=== PATIENT | female | born 1940 | race Caucasian/White ===

== ENCOUNTER 2018-02-18 14:33 | Inpatient (IN) | payer MEDICARE, OTHER ==
[2018-02-18] MEDS: ONDANSETRON 4 MG INJ IV (15:48)
[2018-02-18] MEDS: morphine 4 MG/ML VIAL IV (15:48)
[2018-02-18] MEDS: SOD CHLORIDE 0.9% 1,000 ML IV (15:48)
[2018-02-18 15:51] LABS: ADD MAN DIFF? NO
[2018-02-18 15:56] LABS: WHITE BLOOD COUNT 15.3 10^3/ul (4.8-10.8)
[2018-02-18 15:56] LABS: ABNORMAL IP MESSAGE 1; BASOPHIL # 0.1 10^3/ul (0.0-0.1); BASOPHILS % 0.5 % (0.0-2.0); EOSINOPHILS # 0.4 10^3/ul (0.0-0.5); EOSINOPHILS % 2.3 % (0.0-7.0); HEMATOCRIT 38.2 % (37.0-47.0); HEMOGLOBIN 11.7 g/dl (12.0-16.0); LYMPHOCYTES # 2.4 10^3/ul (0.8-2.9); LYMPHOCYTES % 15.8 % (15.0-51.0); MEAN CORPUSCULAR HEMOGLOBIN 29.5 pg (29.0-33.0); MEAN CORPUSCULAR HGB CONC 30.6 g/dl (32.0-37.0); MEAN CORPUSCULAR VOLUME 96.5 fl (82.0-101.0); MONOCYTE # 1.5 10^3/ul (0.3-0.9); MONOCYTES % 9.6 % (0.0-11.0); NEUTROPHIL # 10.9 10^3/ul (1.6-7.5); NEUTROPHILS % 71.4 % (39.0-77.0); PLATELET COUNT 148 10^3/UL (140-415); RED BLOOD COUNT 3.96 10^6/ul (4.20-5.40)
[2018-02-18 16:15] LABS: INR 1.03; PROTIME 13.6 Sec (11.9-14.9); PT RATIO 1.1
[2018-02-18 16:16] LABS: PARTIAL THROMBOPLASTIN TIME 30.4 Sec (23.0-35.0)
[2018-02-18 16:17] LABS: ADD UMIC YES; UR ASCORBIC ACID NEGATIVE (NEGATIVE); UR BILIRUBIN (Dip) NEGATIVE (NEGATIVE); UR BLOOD (Dip) NEGATIVE (NEGATIVE); UR CLARITY CLEAR (CLEAR); UR COLOR YELLOW (YELLOW); UR GLUCOSE (Dip) NEGATIVE (NEGATIVE); UR KETONES (Dip) NEGATIVE (NEGATIVE); UR LEUKOCYTE ESTERASE (Dip) TRACE Leu/ul (NEGATIVE); UR NITRITE (Dip) NEGATIVE (NEGATIVE); UR RBC 1 /HPF (0-5); UR SQUAMOUS EPITHELIAL CELL FEW /HPF (FEW); UR TOTAL PROTEIN (Dip) 1+ mg/dl (NEGATIVE); UR UROBILINOGEN (Dip) NEGATIVE (NEGATIVE); UR WBC 5 /HPF (0-5)
[2018-02-18 16:20] LABS: ALANINE AMINOTRANSFERASE 19 IU/L (13-69); ALBUMIN 3.2 g/dl (3.3-4.9); ALBUMIN/GLOBULIN RATIO 0.88; ALKALINE PHOSPHATASE 73 IU/L (42-121); ANION GAP 13 (8-16); ASPARTATE AMINO TRANSFERASE 18 IU/L (15-46); BILIRUBIN,INDIRECT 0.2 mg/dl (0-1.1); BILIRUBIN,TOTAL 0.2 mg/dl (0.2-1.3); BLOOD UREA NITROGEN 29 mg/dl (7-20); CALCIUM 9.8 mg/dl (8.4-10.2); CARBON DIOXIDE 28 mmol/L (21-31); CHLORIDE 102 mmol/L (97-110); CREATININE 1.06 mg/dl (0.44-1.00); GLUCOSE 108 mg/dl (70-220); LIPASE 64 U/L (23-300); POTASSIUM 4.5 mmol/L (3.5-5.1); SODIUM 138 mmol/L (135-144); TOTAL PROTEIN 6.8 g/dl (6.1-8.1)
[2018-02-18] MEDS: CEFTRIAXONE 1 GM/50 ML (PMX) 50 ML IVPB (17:08)
[2018-02-18] MEDS ORDERED: metroNIDAZOLE 500 MG/NS (PMX) 100 ML IVPB (18:00)
[2018-02-18] MEDS ORDERED: GLUCAGON 1 MG INJ IM (18:30)
[2018-02-18] MEDS ORDERED: HYDROCODONE/APAP (5/325) TAB PO (18:30)
[2018-02-18] MEDS ORDERED: DEXTROSE 50% 50 ML SYRINGE IV ×2 (18:30)
[2018-02-18] MEDS ORDERED: GLUCOSE GEL 15 GRAM TUBE PO ×2 (18:30)
[2018-02-18] MEDS ORDERED: GLUCOSE GEL 15 GRAM TUBE BUCCAL (18:30)
[2018-02-18] MEDS: INSULIN ASPART [NOVOLOG] 3 ML PEN SC (18:30)
[2018-02-18] MEDS ORDERED: NACL 0.9% 3 ML SYG IV (18:30)
[2018-02-18] MEDS ORDERED: LORAZEPAM 2 MG INJ IV (18:30)
[2018-02-18] MEDS ORDERED: hydrALAzine 20 MG INJ IV (19:00)
[2018-02-18] MEDS: DEXTROSE 5%-0.45% NACL 1,000 ML IV (20:03)
[2018-02-18] MEDS: PANTOPRAZOLE 40 MG INJ IV (20:04)
[2018-02-18] MEDS: metroNIDAZOLE 500 MG/NS (PMX) 100 ML IVPB ×2 (20:04→22:00)
[2018-02-18] MEDS: CIPROFLOXACIN 400MG/D5W 200 ML IVPB ×2 (20:04→21:00)
[2018-02-18] MEDS: morphine 2 MG INJ IV (20:14)
[2018-02-18] MEDS ORDERED: FAMOTIDINE 20 MG INJ IV (21:00)
[2018-02-19] MEDS: ACCU-CHEK XX (02:00)
[2018-02-19] MEDS: DEXTROSE 5%-0.45% NACL 1,000 ML IV ×4 (04:15→23:12)
[2018-02-19] MEDS: LEVOTHYROXINE 100 MCG VIAL IV (05:25)
[2018-02-19] MEDS: metroNIDAZOLE 500 MG/NS (PMX) 100 ML IVPB ×3 (05:25→22:17)
[2018-02-19] MEDS: PANTOPRAZOLE 40 MG INJ IV (05:25)
[2018-02-19] MEDS: ONDANSETRON 4 MG INJ IV ×2 (05:25→19:37)
[2018-02-19] MEDS: ACETAMINOPHEN 325 MG TAB PO (05:35)
[2018-02-19] MEDS: INSULIN ASPART [NOVOLOG] 3 ML PEN SC ×5 (05:38→20:38)
[2018-02-19 07:14] LABS: ADD MAN DIFF? NO
[2018-02-19 07:17] LABS: ABNORMAL IP MESSAGE 1; BASOPHIL # 0.1 10^3/ul (0.0-0.1); BASOPHILS % 0.4 % (0.0-2.0); EOSINOPHILS # 0.3 10^3/ul (0.0-0.5); EOSINOPHILS % 2.7 % (0.0-7.0); HEMATOCRIT 32.7 % (37.0-47.0); HEMOGLOBIN 10.2 g/dl (12.0-16.0); LYMPHOCYTES # 2.7 10^3/ul (0.8-2.9); LYMPHOCYTES % 21.2 % (15.0-51.0); MEAN CORPUSCULAR HEMOGLOBIN 30.1 pg (29.0-33.0); MEAN CORPUSCULAR HGB CONC 31.2 g/dl (32.0-37.0); MEAN CORPUSCULAR VOLUME 96.5 fl (82.0-101.0); MEAN PLATELET VOLUME 13.5 fl (7.4-10.4); MONOCYTES % 7.7 % (0.0-11.0); NEUTROPHIL # 8.5 10^3/ul (1.6-7.5); NEUTROPHILS % 67.4 % (39.0-77.0); PLATELET COUNT 139 10^3/UL (140-415); RED BLOOD COUNT 3.39 10^6/ul (4.20-5.40); RED CELL DISTRIBUTION WIDTH 12.8 % (11.5-14.5)
[2018-02-19 07:17] LABS: WHITE BLOOD COUNT 12.7 10^3/ul (4.8-10.8)
[2018-02-19 07:21] LABS: POSITIVE DIFF @See below
[2018-02-19 07:42] LABS: ALANINE AMINOTRANSFERASE 18 IU/L (13-69); ALBUMIN 3.1 g/dl (3.3-4.9); ALBUMIN/GLOBULIN RATIO 1.06; ALKALINE PHOSPHATASE 59 IU/L (42-121); ANION GAP 12 (8-16); ASPARTATE AMINO TRANSFERASE 16 IU/L (15-46); BILIRUBIN,INDIRECT 0.2 mg/dl (0-1.1); BILIRUBIN,TOTAL 0.2 mg/dl (0.2-1.3); BLOOD UREA NITROGEN 21 mg/dl (7-20); CALCIUM 8.4 mg/dl (8.4-10.2); CARBON DIOXIDE 26 mmol/L (21-31); CHLORIDE 104 mmol/L (97-110); CREATININE 0.92 mg/dl (0.44-1.00); GLUCOSE 123 mg/dl (70-220); MAGNESIUM 1.4 mg/dl (1.7-2.5); POTASSIUM 4.6 mmol/L (3.5-5.1); SODIUM 137 mmol/L (135-144)
[2018-02-19 07:58] LABS: FREE T4 (FREE THYROXINE) 0.97 ng/dl (0.85-1.93)
[2018-02-19] MEDS: CIPROFLOXACIN 400MG/D5W 200 ML IVPB ×2 (08:12→20:37)
[2018-02-19] MEDS: ASPIRIN 81 MG TAB PO (08:14)
[2018-02-19] MEDS: DONEPEZIL 10 MG TAB PO (08:15)
[2018-02-19] MEDS: LOSARTAN 50 MG TAB PO (08:15)
[2018-02-19] MEDS: QUETIAPINE 25 MG TAB PO (08:15)
[2018-02-19] MEDS: MEMANTINE 10 MG TAB PO (08:15)
[2018-02-19] MEDS: MAGNESIUM SULFATE 2 GM/50 ML 50 ML IVPB (11:06)
[2018-02-19] MEDS ORDERED: LORAZEPAM 1 MG TAB PO (15:00)
[2018-02-19] MEDS: morphine 2 MG INJ IV (19:22)
[2018-02-20] MEDS: morphine 2 MG INJ IV (00:56)
[2018-02-20] MEDS: DEXTROSE 5%-0.45% NACL 1,000 ML IV ×2 (02:00→10:15)
[2018-02-20] MEDS: ACCU-CHEK XX (02:00)
[2018-02-20] MEDS: LEVOTHYROXINE 50 MCG TAB PO (05:58)
[2018-02-20] MEDS: metroNIDAZOLE 500 MG/NS (PMX) 100 ML IVPB (05:58)
[2018-02-20] MEDS: PANTOPRAZOLE 40 MG INJ IV (05:58)
[2018-02-20 07:44] LABS: ADD MAN DIFF? NO
[2018-02-20 07:52] LABS: WHITE BLOOD COUNT 9.6 10^3/ul (4.8-10.8)
[2018-02-20 07:52] LABS: ABNORMAL IP MESSAGE 1; BASOPHIL # 0.1 10^3/ul (0.0-0.1); BASOPHILS % 0.5 % (0.0-2.0); EOSINOPHILS # 0.4 10^3/ul (0.0-0.5); EOSINOPHILS % 4.5 % (0.0-7.0); HEMATOCRIT 35.5 % (37.0-47.0); HEMOGLOBIN 10.9 g/dl (12.0-16.0); LYMPHOCYTES # 2.3 10^3/ul (0.8-2.9); LYMPHOCYTES % 23.5 % (15.0-51.0); MEAN CORPUSCULAR HEMOGLOBIN 29.8 pg (29.0-33.0); MEAN CORPUSCULAR HGB CONC 30.7 g/dl (32.0-37.0); MEAN PLATELET VOLUME 13.9 fl (7.4-10.4); MONOCYTE # 1.1 10^3/ul (0.3-0.9); MONOCYTES % 10.9 % (0.0-11.0); NEUTROPHIL # 5.8 10^3/ul (1.6-7.5); NEUTROPHILS % 60.2 % (39.0-77.0); PLATELET COUNT 168 10^3/UL (140-415); RED BLOOD COUNT 3.66 10^6/ul (4.20-5.40); RED CELL DISTRIBUTION WIDTH 12.9 % (11.5-14.5)
[2018-02-20 07:53] LABS: POSITIVE DIFF @See below
[2018-02-20 08:14] LABS: ANION GAP 9 (8-16); BLOOD UREA NITROGEN 14 mg/dl (7-20); CALCIUM 8.7 mg/dl (8.4-10.2); CARBON DIOXIDE 31 mmol/L (21-31); CHLORIDE 105 mmol/L (97-110); CREATININE 0.91 mg/dl (0.44-1.00); GLUCOSE 116 mg/dl (70-220); MAGNESIUM 1.8 mg/dl (1.7-2.5); PHOSPHORUS 3.7 mg/dl (2.5-4.9); POTASSIUM 4.8 mmol/L (3.5-5.1); SODIUM 140 mmol/L (135-144)
[2018-02-20] MEDS: MEMANTINE 10 MG TAB PO (08:42)
[2018-02-20] MEDS: QUETIAPINE 25 MG TAB PO (08:42)
[2018-02-20] MEDS: ASPIRIN 81 MG TAB PO (08:42)
[2018-02-20] MEDS: DONEPEZIL 10 MG TAB PO (08:42)
[2018-02-20] MEDS: CIPROFLOXACIN 400MG/D5W 200 ML IVPB (08:42)
[2018-02-20] MEDS: LOSARTAN 50 MG TAB PO (08:42)
[2018-02-20] MEDS: INSULIN ASPART [NOVOLOG] 3 ML PEN SC ×2 (08:53→11:30)
[2018-02-20] MEDS: metroNIDAZOLE 500 MG TAB PO (13:54)
[2018-02-20] MEDS ORDERED: CIPROFLOXACIN 500 MG TAB PO (18:00)
== END 2018-02-20 14:25 | disposition home or self-care (01) | DRG 392 ==
LOC: E/R 14:33 → 2NE 18:12
DX: K57.92 Diverticulitis of intestine, part unspecified, without perforation or abscess without bleeding (principal); E11.8 Type 2 diabetes mellitus with unspecified complications; R42 Dizziness and giddiness; E03.9 Hypothyroidism, unspecified; I10 Essential (primary) hypertension; G30.9 Alzheimer's disease, unspecified; F02.80 Dementia in other diseases classified elsewhere, unspecified severity, without behavioral disturbance, psychotic disturbance, mood disturbance, and anxiety; R11.2 Nausea with vomiting, unspecified; E11.9 Type 2 diabetes mellitus without complications; F39 Unspecified mood [affective] disorder
CPT/HCPCS: 36415; 74176; 80048; 80053; 81001; 82962; 83036; 83690; 83735; 84100; 84439; 84443; 85025; 85610; 85730; 87086; 96374; 96375; 99285-25

== ENCOUNTER 2018-02-25 15:02 | Emergency (ER) | payer MEDICARE, OTHER ==
[2018-02-25 15:35] LABS: ADD MAN DIFF? NO
[2018-02-25 15:37] LABS: BASOPHIL # 0.1 10^3/ul (0.0-0.1); BASOPHILS % 0.7 % (0.0-2.0); EOSINOPHILS # 0.4 10^3/ul (0.0-0.5); EOSINOPHILS % 3.3 % (0.0-7.0); HEMATOCRIT 36.1 % (37.0-47.0); HEMOGLOBIN 11.4 g/dl (12.0-16.0); LYMPHOCYTES # 2.9 10^3/ul (0.8-2.9); LYMPHOCYTES % 22.8 % (15.0-51.0); MEAN CORPUSCULAR HEMOGLOBIN 29.4 pg (29.0-33.0); MEAN CORPUSCULAR HGB CONC 31.6 g/dl (32.0-37.0); MEAN PLATELET VOLUME 12.2 fl (7.4-10.4); MONOCYTE # 1.3 10^3/ul (0.3-0.9); MONOCYTES % 10.4 % (0.0-11.0); NEUTROPHILS % 62.3 % (39.0-77.0); PLATELET COUNT 261 10^3/UL (140-415); RED BLOOD COUNT 3.88 10^6/ul (4.20-5.40)
[2018-02-25 15:37] LABS: WHITE BLOOD COUNT 12.8 10^3/ul (4.8-10.8)
[2018-02-25] MEDS: ONDANSETRON 4 MG INJ IV (15:43)
[2018-02-25] MEDS: SOD CHLORIDE 0.9% 1,000 ML IV (15:44)
[2018-02-25] MEDS: morphine 4 MG/ML VIAL IV (15:44)
[2018-02-25 15:57] LABS: ALANINE AMINOTRANSFERASE 25 IU/L (13-69); ALBUMIN 3.2 g/dl (3.3-4.9); ALBUMIN/GLOBULIN RATIO 0.94; ALKALINE PHOSPHATASE 61 IU/L (42-121); ANION GAP 15 (8-16); ASPARTATE AMINO TRANSFERASE 22 IU/L (15-46); BILIRUBIN,INDIRECT 0.1 mg/dl (0-1.1); BILIRUBIN,TOTAL 0.1 mg/dl (0.2-1.3); BLOOD UREA NITROGEN 14 mg/dl (7-20); CALCIUM 9.8 mg/dl (8.4-10.2); CARBON DIOXIDE 24 mmol/L (21-31); CHLORIDE 104 mmol/L (97-110); CREATININE 0.85 mg/dl (0.44-1.00); GLUCOSE 106 mg/dl (70-220); LIPASE 59 U/L (23-300); POTASSIUM 4.2 mmol/L (3.5-5.1); SODIUM 139 mmol/L (135-144); TOTAL PROTEIN 6.6 g/dl (6.1-8.1)
[2018-02-25] MEDS: SOD CHLORIDE 0.9% 100 ML (17:16)
[2018-02-25] MEDS: IOHEXOL 300MG/ML 150 ML BTL (17:16)
== END 2018-02-25 19:08 | disposition home or self-care (01) ==
LOC: E/R 15:02
DX: K57.32 Diverticulitis of large intestine without perforation or abscess without bleeding (principal); G30.9 Alzheimer's disease, unspecified; Z79.82 Long term (current) use of aspirin
CPT/HCPCS: 36415; 74177; 80053; 83690; 85025; 93005; 96374; 96375; 99285-25

== ENCOUNTER 2018-06-14 12:56 | Inpatient (IN) | payer MEDICARE, OTHER ==
[2018-06-14 13:14] LABS: ADD MAN DIFF? NO
[2018-06-14 13:18] LABS: WHITE BLOOD COUNT 8.3 10^3/ul (4.8-10.8)
[2018-06-14 13:18] LABS: ABNORMAL IP MESSAGE 1; BASOPHIL # 0.1 10^3/ul (0.0-0.1); BASOPHILS % 0.8 % (0.0-2.0); EOSINOPHILS # 0.3 10^3/ul (0.0-0.5); EOSINOPHILS % 3.6 % (0.0-7.0); HEMATOCRIT 39.3 % (37.0-47.0); HEMOGLOBIN 12.3 g/dl (12.0-16.0); LYMPHOCYTES # 2.8 10^3/ul (0.8-2.9); LYMPHOCYTES % 34.1 % (15.0-51.0); MEAN CORPUSCULAR HGB CONC 31.3 g/dl (32.0-37.0); MEAN CORPUSCULAR VOLUME 95.9 fl (82.0-101.0); MEAN PLATELET VOLUME 13.2 fl (7.4-10.4); MONOCYTE # 0.8 10^3/ul (0.3-0.9); MONOCYTES % 10.2 % (0.0-11.0); NEUTROPHIL # 4.2 10^3/ul (1.6-7.5); NEUTROPHILS % 50.9 % (39.0-77.0); PLATELET COUNT 154 10^3/UL (140-415); RED CELL DISTRIBUTION WIDTH 13.6 % (11.5-14.5)
[2018-06-14 13:20] LABS: POSITIVE DIFF @See below
[2018-06-14 13:38] LABS: INR 0.93; PROTIME 12.6 Sec (11.9-14.9)
[2018-06-14 13:39] LABS: ALANINE AMINOTRANSFERASE 15 IU/L (13-69); ALBUMIN 4.1 g/dl (3.3-4.9); ALBUMIN/GLOBULIN RATIO 1.28; ALKALINE PHOSPHATASE 70 IU/L (42-121); ANION GAP 10 (5-13); ASPARTATE AMINO TRANSFERASE 27 IU/L (15-46); BILIRUBIN,INDIRECT 0.1 mg/dl (0-1.1); BILIRUBIN,TOTAL 0.1 mg/dl (0.2-1.3); BLOOD UREA NITROGEN 19 mg/dl (7-20); CALCIUM 9.5 mg/dl (8.4-10.2); CARBON DIOXIDE 24 mmol/L (21-31); CHLORIDE 104 mmol/L (97-110); CREATININE 0.93 mg/dl (0.44-1.00); GLUCOSE 97 mg/dl (70-220); PARTIAL THROMBOPLASTIN TIME 30.4 Sec (23.0-35.0); POTASSIUM 4.5 mmol/L (3.5-5.1); SODIUM 138 mmol/L (135-144); TOTAL PROTEIN 7.3 g/dl (6.1-8.1)
[2018-06-14 13:45] LABS: ACETAMINOPHEN < 10.0 ug/ml (10.0-30.0); ETHANOL < 10.0 mg/dl (0-0); SALICYLATE < 1.0 mg/dl (5.0-30.0)
[2018-06-14 13:50] LABS: TROPONIN-I < 0.012 ng/ml (0.000-0.120)
[2018-06-14 13:54] LABS: AMPHETAMINE/METHAMPHETAMINE Negative (NEGATIVE); BARBITURATES Negative (NEGATIVE); BENZODIAZEPINES Negative (NEGATIVE); CANNABINOIDS Negative (NEGATIVE); COCAINE Negative (NEGATIVE); OPIATES Negative (NEGATIVE)
[2018-06-14] MEDS: THIAMINE 100 MG TAB PO (13:54)
[2018-06-14 13:57] LABS: UR BACTERIA FEW /HPF (NONE SEEN); UR RBC 0 /HPF (0-5); UR WBC 2 /HPF (0-5)
[2018-06-14 14:03] LABS: ADD UMIC NO; UR ASCORBIC ACID NEGATIVE (NEGATIVE); UR BILIRUBIN (Dip) NEGATIVE (NEGATIVE); UR BLOOD (Dip) NEGATIVE (NEGATIVE); UR CLARITY SLIGHTLY CLOUDY (CLEAR); UR COLOR YELLOW (YELLOW); UR GLUCOSE (Dip) NEGATIVE (NEGATIVE); UR KETONES (Dip) NEGATIVE (NEGATIVE); UR LEUKOCYTE ESTERASE (Dip) NEGATIVE Leu/ul (NEGATIVE); UR NITRITE (Dip) NEGATIVE (NEGATIVE); UR SPECIFIC GRAVITY (Dip) 1.017 (1.003-1.030); UR TOTAL PROTEIN (Dip) NEGATIVE (NEGATIVE); UR UROBILINOGEN (Dip) NEGATIVE (NEGATIVE)
[2018-06-14] MEDS: THIAMINE 100 MG in SOD CHLORIDE 0.9% 100 ML IVPB (14:17)
[2018-06-14] MEDS: SOD CHLORIDE 0.9% 500 ML IV (14:32)
[2018-06-14] MEDS: ASPIRIN 325 MG TAB PO (14:32)
[2018-06-14] MEDS ORDERED: ACETAMINOPHEN 325 MG TAB PO ×3 (15:30→20:00)
[2018-06-14] MEDS ORDERED: ONDANSETRON 4 MG INJ IV ×3 (15:30→20:00)
[2018-06-14 18:07] LABS: LACTIC ACID 2.8 mmol/L (0.5-2.0)
[2018-06-14] MEDS ORDERED: SOD CHLORIDE 0.9% 1,000 ML IV (19:42)
[2018-06-14] MEDS ORDERED: DOCUSATE SODIUM 100 MG CAP PO ×2 (20:00)
[2018-06-14] MEDS ORDERED: GLUCOSE GEL 15 GRAM TUBE PO ×2 (20:00)
[2018-06-14] MEDS ORDERED: GLUCOSE GEL 15 GRAM TUBE BUCCAL (20:00)
[2018-06-14] MEDS ORDERED: CYANOCOBALAMIN 500 MCG TAB PO (20:00)
[2018-06-14] MEDS ORDERED: NACL 0.9% 3 ML SYG IV ×2 (20:00)
[2018-06-14] MEDS ORDERED: ACETAMINOPHEN 650 MG SUPP PR (20:00)
[2018-06-14] MEDS ORDERED: clonAZEPAM 0.5 MG TAB PO (20:00)
[2018-06-14] MEDS ORDERED: morphine 2 MG INJ IV (20:00)
[2018-06-14] MEDS ORDERED: HYDROCODONE/APAP (5/325) TAB PO ×2 (20:00)
[2018-06-14] MEDS ORDERED: BISACODYL (EC) 5 MG TAB PO (20:00)
[2018-06-14] MEDS ORDERED: GLUCAGON 1 MG INJ IM (20:00)
[2018-06-14] MEDS ORDERED: DEXTROSE 50% 50 ML SYRINGE IV ×2 (20:00)
[2018-06-14] MEDS ORDERED: MAGNESIUM HYDROXIDE 30ML CUP PO (20:00)
[2018-06-14] MEDS ORDERED: morphine 4 MG/ML VIAL IV (20:13)
[2018-06-14] MEDS: INSULIN ASPART [NOVOLOG] 3 ML PEN SC (20:25)
[2018-06-14] MEDS: SOD CHLORIDE 0.45% 1,000 ML IV (20:54)
[2018-06-14] MEDS: CEFTRIAXONE 1 GM/50 ML (PMX) 50 ML IVPB (20:54)
[2018-06-14] MEDS: MEMANTINE 10 MG TAB PO (20:55)
[2018-06-14] MEDS: DULOXETINE 30 MG CAP DR PO (20:55)
[2018-06-14] MEDS: QUETIAPINE 25 MG TAB PO (20:55)
[2018-06-15] MEDS: ACCU-CHEK XX (01:12)
[2018-06-15] MEDS: SOD CHLORIDE 0.45% 1,000 ML IV (05:41)
[2018-06-15 05:46] LABS: ADD MAN DIFF? NO
[2018-06-15 05:48] LABS: WHITE BLOOD COUNT 9.5 10^3/ul (4.8-10.8)
[2018-06-15 05:48] LABS: ABNORMAL IP MESSAGE 1; BASOPHIL # 0.1 10^3/ul (0.0-0.1); BASOPHILS % 0.7 % (0.0-2.0); EOSINOPHILS # 0.3 10^3/ul (0.0-0.5); EOSINOPHILS % 3.3 % (0.0-7.0); HEMATOCRIT 35.4 % (37.0-47.0); HEMOGLOBIN 11.2 g/dl (12.0-16.0); LYMPHOCYTES # 2.4 10^3/ul (0.8-2.9); LYMPHOCYTES % 25.3 % (15.0-51.0); MEAN CORPUSCULAR HEMOGLOBIN 29.9 pg (29.0-33.0); MEAN CORPUSCULAR HGB CONC 31.6 g/dl (32.0-37.0); MEAN CORPUSCULAR VOLUME 94.7 fl (82.0-101.0); MONOCYTE # 0.9 10^3/ul (0.3-0.9); MONOCYTES % 9.2 % (0.0-11.0); NEUTROPHIL # 5.8 10^3/ul (1.6-7.5); NEUTROPHILS % 61.2 % (39.0-77.0); PLATELET COUNT 155 10^3/UL (140-415); RED BLOOD COUNT 3.74 10^6/ul (4.20-5.40); RED CELL DISTRIBUTION WIDTH 13.5 % (11.5-14.5)
[2018-06-15 06:02] LABS: POSITIVE DIFF @See below
[2018-06-15 06:15] LABS: INR 1.01; PROTIME 13.4 Sec (11.9-14.9)
[2018-06-15 06:17] LABS: CHOL/HDL RATIO 3.4 RATIO; HDL CHOLESTEROL 53 mg/dl (33-92); LDL CHOLESTEROL,CALCULATED 74 mg/dl; TRIGLYCERIDES 287 mg/dl (0-149)
[2018-06-15 06:17] LABS: CHOLESTEROL 184 mg/dl (100-200)
[2018-06-15 06:27] LABS: ANION GAP 7 (5-13); BLOOD UREA NITROGEN 17 mg/dl (7-20); CALCIUM 9.2 mg/dl (8.4-10.2); CARBON DIOXIDE 26 mmol/L (21-31); CHLORIDE 102 mmol/L (97-110); CREATININE 0.87 mg/dl (0.44-1.00); GLUCOSE 87 mg/dl (70-220); MAGNESIUM 1.3 mg/dl (1.7-2.5); PHOSPHORUS 4.1 mg/dl (2.5-4.9); POTASSIUM 4.6 mmol/L (3.5-5.1); SODIUM 135 mmol/L (135-144)
[2018-06-15 07:08] LABS: HEMOGLOBIN A1C 5.7 % (0-5.9)
[2018-06-15] MEDS: INSULIN ASPART [NOVOLOG] 3 ML PEN SC ×2 (08:00→12:00)
[2018-06-15] MEDS ORDERED: NON-FORMULARY/PATIENT OWN MED (Donepezil* 23 MG) PO (09:00)
[2018-06-15] MEDS ORDERED: MAGNESIUM SULFATE 4 GM/100 ML 100 ML IVPB (09:00)
[2018-06-15] MEDS: HYDROCHLOROTHIAZIDE 12.5 MG CAP PO (09:04)
[2018-06-15] MEDS: metFORMIN 500 MG TAB PO (09:04)
[2018-06-15] MEDS: ASPIRIN (EC) 81 MG TAB PO (09:05)
[2018-06-15] MEDS: MEMANTINE 10 MG TAB PO (09:05)
[2018-06-15] MEDS: AMLODIPINE 5 MG TAB PO (09:05)
[2018-06-15] MEDS: LOSARTAN 50 MG TAB PO (09:05)
[2018-06-15] MEDS: CHOLECALCIFEROL 1,000 UNIT TAB PO (09:05)
[2018-06-15] MEDS: LEVOTHYROXINE 50 MCG TAB PO (09:05)
[2018-06-15] MEDS: ENOXAPARIN 40 MG/0.4 ML SYG SC (09:30)
[2018-06-15] MEDS: MAGNESIUM OXIDE 400 MG TAB PO (11:00)
== END 2018-06-15 12:38 | disposition home or self-care (01) | DRG 72 ==
LOC: E/R 12:56 → 6WM 15:23
DX: G93.40 Encephalopathy, unspecified (principal); G30.9 Alzheimer's disease, unspecified; F02.80 Dementia in other diseases classified elsewhere, unspecified severity, without behavioral disturbance, psychotic disturbance, mood disturbance, and anxiety; I10 Essential (primary) hypertension; E03.9 Hypothyroidism, unspecified; E11.9 Type 2 diabetes mellitus without complications; Z86.73 Personal history of transient ischemic attack (TIA), and cerebral infarction without residual deficits; Z79.82 Long term (current) use of aspirin; Z79.84 Long term (current) use of oral hypoglycemic drugs
CPT/HCPCS: 36415; 70450; 71045; 80048; 80053; 80061; 80307; 81001; 81003; 82607; 82962; 83036; 83605; 83735; 84100; 84484; 85025; 85610; 85730; 87040; 87086; 87400; 93005; 97161; 99285-25; G0378

== ENCOUNTER 2018-11-03 16:09 | Emergency (ER) | payer MEDICARE, OTHER ==
[2018-11-03] MEDS: ONDANSETRON 4 MG INJ IV (19:38)
[2018-11-03] MEDS: SOD CHLORIDE 0.9% 500 ML IV (19:38)
[2018-11-03 19:47] LABS: URINE PH (Dip) POC 5.5 (5.0-8.5)
[2018-11-03 19:47] LABS: URINE BLOOD (Dip) POC Negative (NEGATIVE); URINE GLUCOSE (Dip) POC Negative (NEGATIVE); URINE KETONES (Dip) POC Trace (NEGATIVE); URINE LEUKOCYTE EST (Dip) POC 1+ (NEGATIVE); URINE NITRITE (Dip) POC Negative (NEGATIVE); URINE TOTAL PROTEIN POC 3+ (NEGATIVE)
[2018-11-03 19:48] LABS: ADD MAN DIFF? NO
[2018-11-03 19:54] LABS: WHITE BLOOD COUNT 8.5 10^3/ul (4.8-10.8)
[2018-11-03 19:54] LABS: ABNORMAL IP MESSAGE 1; BASOPHIL # 0.1 10^3/ul (0.0-0.1); BASOPHILS % 0.7 % (0.0-2.0); EOSINOPHILS # 0.2 10^3/ul (0.0-0.5); EOSINOPHILS % 2.1 % (0.0-7.0); HEMATOCRIT 39.5 % (37.0-47.0); HEMOGLOBIN 12.4 g/dl (12.0-16.0); LYMPHOCYTES # 2.9 10^3/ul (0.8-2.9); LYMPHOCYTES % 34.1 % (15.0-51.0); MEAN CORPUSCULAR HEMOGLOBIN 29.5 pg (29.0-33.0); MEAN CORPUSCULAR HGB CONC 31.4 g/dl (32.0-37.0); MEAN CORPUSCULAR VOLUME 93.8 fl (82.0-101.0); MEAN PLATELET VOLUME 13.5 fl (7.4-10.4); MONOCYTE # 0.8 10^3/ul (0.3-0.9); MONOCYTES % 9.2 % (0.0-11.0); NEUTROPHIL # 4.5 10^3/ul (1.6-7.5); NEUTROPHILS % 53.7 % (39.0-77.0); PLATELET COUNT 201 10^3/UL (140-415); RED BLOOD COUNT 4.21 10^6/ul (4.20-5.40); RED CELL DISTRIBUTION WIDTH 12.8 % (11.5-14.5)
[2018-11-03 19:56] LABS: POSITIVE DIFF @See below
[2018-11-03 20:17] LABS: ALANINE AMINOTRANSFERASE 13 IU/L (13-69); ALBUMIN 4.6 g/dl (3.3-4.9); ALBUMIN/GLOBULIN RATIO 1.31; ALKALINE PHOSPHATASE 69 IU/L (42-121); ANION GAP 14 (5-13); ASPARTATE AMINO TRANSFERASE 20 IU/L (15-46); BILIRUBIN,INDIRECT 0.5 mg/dl (0-1.1); BILIRUBIN,TOTAL 0.5 mg/dl (0.2-1.3); BLOOD UREA NITROGEN 20 mg/dl (7-20); CARBON DIOXIDE 26 mmol/L (21-31); CHLORIDE 100 mmol/L (97-110); CREATININE 1.54 mg/dl (0.44-1.00); GLUCOSE 106 mg/dl (70-220); LIPASE 46 U/L (23-300); POTASSIUM 4.2 mmol/L (3.5-5.1); SODIUM 140 mmol/L (135-144); TOTAL PROTEIN 8.1 g/dl (6.1-8.1)
[2018-11-03] MEDS: CEFTRIAXONE 1 GM/50 ML (PMX) 50 ML IVPB (21:49)
== END 2018-11-03 22:41 | disposition home or self-care (01) ==
LOC: E/R 16:09
DX: N39.0 Urinary tract infection, site not specified (principal); K52.9 Noninfective gastroenteritis and colitis, unspecified; L30.9 Dermatitis, unspecified
CPT/HCPCS: 36415; 74176; 76705; 80053; 81003; 83690; 85025; 96374; 96375; 99285-25

== ENCOUNTER 2018-11-06 12:22 | Observation (INO) | payer MEDICARE, OTHER ==
[2018-11-06] MEDS: morphine 4 MG/ML VIAL IV (13:17)
[2018-11-06] MEDS: ONDANSETRON 4 MG INJ IV (13:17)
[2018-11-06 13:18] LABS: ADD MAN DIFF? NO
[2018-11-06] MEDS: SOD CHLORIDE 0.9% 1,000 ML IV ×2 (13:20→21:42)
[2018-11-06 13:28] LABS: ABNORMAL IP MESSAGE 1; BASOPHIL # 0.1 10^3/ul (0.0-0.1); BASOPHILS % 0.6 % (0.0-2.0); EOSINOPHILS # 0.1 10^3/ul (0.0-0.5); EOSINOPHILS % 0.6 % (0.0-7.0); HEMATOCRIT 36.6 % (37.0-47.0); HEMOGLOBIN 11.6 g/dl (12.0-16.0); LYMPHOCYTES # 1.5 10^3/ul (0.8-2.9); LYMPHOCYTES % 18.5 % (15.0-51.0); MEAN CORPUSCULAR HEMOGLOBIN 29.4 pg (29.0-33.0); MEAN CORPUSCULAR HGB CONC 31.7 g/dl (32.0-37.0); MEAN CORPUSCULAR VOLUME 92.9 fl (82.0-101.0); MEAN PLATELET VOLUME 13.7 fl (7.4-10.4); MONOCYTE # 0.5 10^3/ul (0.3-0.9); MONOCYTES % 5.9 % (0.0-11.0); NEUTROPHIL # 6.1 10^3/ul (1.6-7.5); NEUTROPHILS % 74.2 % (39.0-77.0); PLATELET COUNT 195 10^3/UL (140-415); RED BLOOD COUNT 3.94 10^6/ul (4.20-5.40); RED CELL DISTRIBUTION WIDTH 12.7 % (11.5-14.5)
[2018-11-06 13:28] LABS: WHITE BLOOD COUNT 8.2 10^3/ul (4.8-10.8)
[2018-11-06 13:32] LABS: POSITIVE DIFF @See below
[2018-11-06 13:48] LABS: ALANINE AMINOTRANSFERASE 16 IU/L (13-69); ALBUMIN 4.1 g/dl (3.3-4.9); ALBUMIN/GLOBULIN RATIO 1.24; ALKALINE PHOSPHATASE 60 IU/L (42-121); ANION GAP 13 (5-13); ASPARTATE AMINO TRANSFERASE 17 IU/L (15-46); BILIRUBIN,INDIRECT 0.3 mg/dl (0-1.1); BILIRUBIN,TOTAL 0.3 mg/dl (0.2-1.3); BLOOD UREA NITROGEN 25 mg/dl (7-20); CALCIUM 9.4 mg/dl (8.4-10.2); CARBON DIOXIDE 23 mmol/L (21-31); CHLORIDE 102 mmol/L (97-110); CREATININE 1.41 mg/dl (0.44-1.00); GLUCOSE 104 mg/dl (70-220); LIPASE 46 U/L (23-300); POTASSIUM 4.1 mmol/L (3.5-5.1); SODIUM 138 mmol/L (135-144); TOTAL PROTEIN 7.4 g/dl (6.1-8.1)
[2018-11-06] MEDS ORDERED: ONDANSETRON 4 MG INJ IV (17:30)
[2018-11-06] MEDS ORDERED: ACETAMINOPHEN 325 MG TAB PO (17:30)
[2018-11-06] MEDS ORDERED: NACL 0.9% 3 ML SYG IV (19:00)
[2018-11-06] MEDS: LORAZEPAM 2 MG INJ IV (21:35)
[2018-11-07] MEDS: RISPERIDONE 0.25 MG TAB PO (01:52)
[2018-11-07] MEDS: MELATONIN 5 MG TABLET PO (01:52)
[2018-11-07] MEDS ORDERED: DEXTROSE 50% 50 ML SYRINGE IV ×2 (03:00)
[2018-11-07] MEDS ORDERED: GLUCOSE GEL 15 GRAM TUBE BUCCAL (03:00)
[2018-11-07] MEDS ORDERED: GLUCOSE GEL 15 GRAM TUBE PO ×2 (03:00)
[2018-11-07] MEDS ORDERED: GLUCAGON 1 MG INJ IM (03:00)
[2018-11-07] MEDS: LEVOTHYROXINE 50 MCG TAB PO (06:57)
[2018-11-07] MEDS: INSULIN ASPART [NOVOLOG] 3 ML PEN SC ×2 (07:30→11:30)
[2018-11-07 07:40] LABS: ADD MAN DIFF? NO
[2018-11-07 07:44] LABS: WHITE BLOOD COUNT 8.5 10^3/ul (4.8-10.8)
[2018-11-07 07:44] LABS: HEMATOCRIT 33.9 % (37.0-47.0); HEMOGLOBIN 10.7 g/dl (12.0-16.0); MEAN CORPUSCULAR HEMOGLOBIN 29.1 pg (29.0-33.0); MEAN CORPUSCULAR VOLUME 92.1 fl (82.0-101.0); RED BLOOD COUNT 3.68 10^6/ul (4.20-5.40)
[2018-11-07 07:45] LABS: ABNORMAL IP MESSAGE 1; BASOPHIL # 0.1 10^3/ul (0.0-0.1); BASOPHILS % 0.8 % (0.0-2.0); EOSINOPHILS # 0.3 10^3/ul (0.0-0.5); EOSINOPHILS % 3.5 % (0.0-7.0); LYMPHOCYTES # 2.9 10^3/ul (0.8-2.9); LYMPHOCYTES % 33.7 % (15.0-51.0); MEAN CORPUSCULAR HGB CONC 31.6 g/dl (32.0-37.0); MEAN PLATELET VOLUME 13.2 fl (7.4-10.4); MONOCYTES % 11.2 % (0.0-11.0); NEUTROPHIL # 4.3 10^3/ul (1.6-7.5); NEUTROPHILS % 50.6 % (39.0-77.0); PLATELET COUNT 158 10^3/UL (140-415); RED CELL DISTRIBUTION WIDTH 12.8 % (11.5-14.5)
[2018-11-07 07:52] LABS: POSITIVE DIFF @See below
[2018-11-07 07:58] LABS: HEMOGLOBIN A1C 5.7 % (0-5.9)
[2018-11-07 08:02] LABS: ALANINE AMINOTRANSFERASE 20 IU/L (13-69); ALBUMIN 3.3 g/dl (3.3-4.9); ALBUMIN/GLOBULIN RATIO 1.22; ALKALINE PHOSPHATASE 47 IU/L (42-121); ANION GAP 8 (5-13); ASPARTATE AMINO TRANSFERASE 18 IU/L (15-46); BILIRUBIN,INDIRECT 0.3 mg/dl (0-1.1); BILIRUBIN,TOTAL 0.3 mg/dl (0.2-1.3); BLOOD UREA NITROGEN 20 mg/dl (7-20); CALCIUM 8.7 mg/dl (8.4-10.2); CARBON DIOXIDE 26 mmol/L (21-31); CHLORIDE 105 mmol/L (97-110); CREATININE 1.07 mg/dl (0.44-1.00); GLUCOSE 89 mg/dl (70-220); POTASSIUM 3.9 mmol/L (3.5-5.1); SODIUM 139 mmol/L (135-144)
[2018-11-07] MEDS: ONDANSETRON 4 MG INJ IV (08:19)
[2018-11-07] MEDS: SOD CHLORIDE 0.9% 500 ML IV (13:26)
== END 2018-11-07 17:10 | disposition home or self-care (01) ==
LOC: E/R 12:22 → PP2 17:17
DX: R11.0 Nausea (principal); G30.9 Alzheimer's disease, unspecified; F02.80 Dementia in other diseases classified elsewhere, unspecified severity, without behavioral disturbance, psychotic disturbance, mood disturbance, and anxiety; N17.9 Acute kidney failure, unspecified; I10 Essential (primary) hypertension; Z79.82 Long term (current) use of aspirin
CPT/HCPCS: 36415; 70551; 74176; 80053; 82962; 83036; 83690; 85025; 96361; 96374; 96375; 97162; 99285-25; G0378